=== PATIENT | female | born 1995 | race Hispanic/Latino ===

== ENCOUNTER 2017-03-27 07:00 | Emergency (ER) | payer OTHER ==
[~2017-03-27] VITALS: Ht 160 cm; Wt 49.9 kg
[2017-03-27 08:07] LABS: ABSOLUTE BASOPHIL COUNT 0 /CUMM (0.0-0.2); ABSOLUTE EOSINOPHIL COUNT 0.1 /CUMM (0.0-0.7); ABSOLUTE GRANULOCYTE CT 4.8 /CUMM (1.4-6.5); ABSOLUTE LYMPH COUNT 1.9 /CUMM (1.2-3.4); ABSOLUTE MONOCYTE COUNT 0.6 /CUMM (0.10-0.60); BASOPHIL % 0.6 % (0.0-2.0); EOSINOPHIL % 0.8 % (0-5); GRANULOCYTE % 64.7 % (42.2-75.2); HEMATOCRIT 37.9 % (37-47); MEAN CORPUSCULAR HGB 30.8 PG (27.0-31.0); MEAN CORPUSCULAR HGB CONC 33.5 G/DL (33.0-37.0); MEAN CORPUSCULAR VOLUME 91.9 FL (81.0-99.0); MEAN PLATELET VOLUME 7.4 FL (7.4-10.4); PLATELET COUNT 315 /CUMM (130-400); RBC DISTRIBUTION WIDTH 12.9 % (11.5-14.5); RED BLOOD CELL CT 4.12 /CUMM (4.20-5.40); WHITE BLOOD CELL COUNT 7.4 /CUMM (4.8-10.8)
--- NOTE | 2017-03-27 08:55 | ED PSYCHIATRIC COMPLAINT ---
History of Present Illness General Chief Complaint: ETOH/Drug Related Complaint Stated Complaint: BIBA, DETOX Source: patient Exam Limitations: intoxication Vital Signs & Intake/Output Vital Signs & Intake/Output Vital Signs Date Time Temp Pulse Resp B/P B/P Pulse O2 O2 Flow FiO2 Mean Ox Delivery Rate 03/27 1151 96.9 89 18 99/62 99 Room Air 03/27 0854 97.3 73 16 92/61 100 Room Air 03/27 0710 Room Air 03/27 0701 96.8 80 16 122/56 100 Room Air Allergies Coded Allergies: Penicillins (UNKNOWN 03/27/17) Reconcile Medications No Known Home Medications Triage Note: PT BIBA FOR ?DETOX. PER EMS PT HERE FOR VOLUNTARILY DETOX BUT DENIES DRUG OR ALCOHOL USE LAST NIGHT. PER PT UPON ARRIVAL DENIES NEED/WANT FOR DETOX, STATES SHE WAS PARKED IN AN ILLEGAL PARKING SPOT WITH BOYFRIEND WHEN [employer] ARRIVED AND SHE STATED SHE WANTED DETOX TO GET OUT OF IT. Triage Nurses Notes Reviewed? yes Onset: Abrupt Duration: unknown duration Timing: unknown : No Patient currently breastfeeds: No HPI: 03/27/17 8:50 AM This is a 22-year-old female who was apparently in a car that was parked illegally and the police came. The patient apparently verbalized requesting detox to the police that to get out of it. She denies alcohol or drug use. She is sleepy in the ED and has an elevated urine toxicology screen for benzodiazepine. Past History Travel History Traveled to [place] past 21 day No Medical History Any Pertinent Medical History? 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 No Review of Systems Review of Systems Constitutional: Reports: no symptoms. EENTM: Reports: no symptoms. Respiratory: Reports: no symptoms. Cardiovascular: Reports: no symptoms. GI: Reports: no symptoms. Genitourinary: Reports: no symptoms. Musculoskeletal: Reports: no symptoms. Skin: Reports: no symptoms. Neurological/Psychological: Reports: see HPI. Hematologic/Endocrine: Reports: no symptoms. Immunologic/Allergic: Reports: no symptoms. All Other Systems: Reviewed and Negative Physical Exam Physical Exam General Appearance: well developed/nourished, no apparent distress, SLEEPY Head: atraumatic, normal appearance Eyes: Bilateral: normal appearance, PERRL, EOMI. Ears, Nose, Throat: normal pharynx, normal ENT inspection Neck: normal inspection, supple Respiratory: normal breath sounds, chest non-tender, no respiratory distress Cardiovascular: regular rate/rhythm Gastrointestinal: normal bowel sounds Extremities: normal range of motion Neurological/Psychiatric: no motor/sensory deficits, awake, agitated, SLEEPY Appearance/Memory/Insight: appropriate appearance Behavoir/Eye Contact/Speech: cooperative Thoughts/Hallucinations: normal thought pattern Skin: intact, normal color, warm/dry SAD PERSONS SAD PERSONS Response Value Excessive Ethanol/Drug Use? yes 1 Single//? yes 1 Social Support? has support 0 Total 2 SAD PERSONS Done? yes Progress Differential Diagnosis: drug intoxication, drug overdose, drug withdrawal Plan of Care: Orders Procedure Date/time Status Add-on Test (ER Only) 03/27 0855 Active ACETOMINOPHEN 03/27 07 Complete SALICYLATE 03/27 0748 Complete URINE DRUG SCREEN FOR ER ONLY 03/27 07 Complete HUMAN BETA HCG SCREEN 03/27 07 Complete ETHANOL 03/27 0740 Complete COMPREHENSIVE METABOLIC PANEL 03/27 07 Complete CBC WITHOUT DIFFERENTIAL 03/27 740 Complete Laboratory Tests 03/27/17 0749: Urine Opiates Screen < 100.00, Methadone Screen < 40, Barbiturate Screen < 60, Ur Phencyclidine Scrn < 6.00, Amphetamines Screen < 100, U Benzodiazepines Scrn > 800 H, Urine Cocaine Screen < 50, Urine Cannabis Screen 7.70 03/27/17 0748: Anion Gap 8, Estimated GFR > 60, BUN/Creatinine Ratio 13.3, Glucose 72, Calcium 9.6, Total Bilirubin 0.8, AST 22, ALT 31, Alkaline Phosphatase 44, Total Protein 7.2, Albumin 4.5, Globulin 2.7, Albumin/Globulin Ratio 1.7, Total Beta HCG NEGATIVE, CBC w Diff NO MAN DIFF REQ, RBC 4.12 L, MCV 91.9, MCH 30.8, RDW 12.9, MPV 7.4, Gran % 64.7, Lymphocytes % 26.0, Monocytes % 7.9, Eosinophils % 0.8, Basophils % 0.6, Absolute Granulocytes 4.8, Absolute Lymphocytes 1.9, Absolute Monocytes 0.6, Absolute Eosinophils 0.1, Absolute Basophils 0, PUBS MCHC 33.5, Salicylates < 1.0, Acetaminophen < 10.0 L, Serum Alcohol < 10.0 Initial ED EKG: none Departure Departure Disposition: STILL A PATIENT Condition: Stable Clinical Impression Primary Impression: Benzodiazepine abuse Referrals: PATIENT HAS NO PRIMARY CARE DR (PCP/Family) Departure Forms: Customer Survey General Discharge Information Prescriptions: Current Visit Scripts No Known Home Medications Comments 03/27/17 22-year-old female was reevaluated. She is awake alert and oriented 3. She denies any complaints. She denies any interest in detox. She says she did not take any drugs voluntarily. She declines any interest in speaking with crisis, she was subsequently discharged. No SI.
[2017-03-27 11:51] VITALS: BP 99/62
== END 2017-03-27 14:28 ==
LOC: ERH 07:00
PROVIDERS: Emergency Medicine
DX: F13.10 Sedative, hypnotic or anxiolytic abuse, uncomplicated (principal)
CPT/HCPCS: 80307; G0480